=== PATIENT | male | born 1940 | race Caucasian/White ===

== ENCOUNTER 2019-05-07 09:39 | Emergency (ER) | payer OTHER ==
[~2019-05-07] VITALS: Ht 180.3 cm; Wt 74.8 kg
[~2019-05-07 09:39] MED LIST: FISH OIL 1,001000 M2 PO; HYDROCHLOROTH12.5 M1 PO; LIPITOR10 MG PO; LOSARTAN POTASS50 MG PO; NORCO 5-325 TA1 EACH PO; PLAVIX 75 MG TA75 M1 PO
[2019-05-07] MEDS ORDERED: NORCO 5-325 TA1 EAC1 PO (10:44)
[2019-05-07] MEDS ORDERED: LIDOCAINE1 EACH TRANSDERM (10:44)
[2019-05-07 11:03] VITALS: BP 139/72
--- NOTE | 2019-05-07 12:02 | EKG ---
[address] [address] ELECTROCARDIOGRAM REPORT Name: LILY BERG Room #: [facility] [id number] ������������������ Admission: 05/07/19 ������������������ Attend Phys: Discharge: 05/07/19 ������������������ Date of : 36 Report #: [id number] ����������������������������������������������������������������� [id number] THIS REPORT FOR: //name// [facility] ED Test Date: 2019-05-07 Test Time: 10:37:48 Pat Name: LILY BERG Department: Room: Gender: M Form Maker: : 1940 Requested By: Juhi Bai Order Number: [id number] MD: gAuila Harris Measurements Intervals [place] Rate: 56 P: 52 CA: 156 QRS: -19 QRSD: 92 T: 69 QT: 416 QTc: 402 Interpretive Statements Sinus bradycardia Right ventricular conduction delay Compared to ECG 10/31/2015 12:49:35 no significant change was found Electronically Signed On 05-07-2019 12:01:48 CDT by Aguila Harris [email or web address] ��������������������������������������������� <ELECTRONICALLY SIGNED> ���������������������������������������� By: Aguila Harris MD, [facility] ��������������������������������������������� 05/07/19 1201 1037 [facility] Aguila Harris MD, FACC /EPI
== END 2019-05-07 11:06 | disposition home or self-care (01) ==
LOC: ER 09:39
DX: S20.211A Contusion of right front wall of thorax, initial encounter (principal); I10 Essential (primary) hypertension; E78.00 Pure hypercholesterolemia, unspecified; Z86.73 Personal history of transient ischemic attack (TIA), and cerebral infarction without residual deficits; Z98.41 Cataract extraction status, right eye; Z98.42 Cataract extraction status, left eye; Z98.890 Other specified postprocedural states; W01.0XXA Fall on same level from slipping, tripping and stumbling without subsequent striking against object, initial encounter; Y93.89 Activity, other specified; Y92.481 Parking lot as the place of occurrence of the external cause; Y99.8 Other external cause status